=== PATIENT | male | born 1950 | race Caucasian/White ===

== ENCOUNTER → 2021-07-27 | Outpatient (CLI) | payer MEDICARE, OTHER ==
[~2021-07-27] MED LIST: BENTYL 10MG CAP10 MG PO; MEDROL DOSEPAK 24 MG PO; ZITHROMAX250 MG PO; ZOFRAN4 MG PO
== END ==
LOC: CT 09:17
DX: R10.84 Generalized abdominal pain (principal); K59.00 Constipation, unspecified
CPT/HCPCS: 36415; 82565; Q9967

== ENCOUNTER 2021-12-11 16:55 | Observation (INO) | payer MEDICARE, OTHER ==
[~2021-12-11] VITALS: Ht 175.3 cm; Wt 49.0 kg
[2021-12-11 17:31] LABS: HEMOGLOBIN 14.8 gm/dl (14.0-17.5); RED BLOOD COUNT 4.88 M/UL (4.20-5.50); WHITE BLOOD COUNT 7.2 K/UL (4.5-11.0)
[2021-12-11 17:59] LABS: BUN/CREATININE RATIO 20 (0-10)
[2021-12-12 08:49] LABS: HEMOGLOBIN 13.3 gm/dl (14.0-17.5)
[2021-12-12 08:50] LABS: RED BLOOD COUNT 4.38 M/UL (4.20-5.50); WHITE BLOOD COUNT 5.3 K/UL (4.5-11.0)
[2021-12-12 09:15] LABS: BUN/CREATININE RATIO 20 (0-10)
[2021-12-12 15:23] LABS: CANDIDA ALBICANS Not Detected (Negative); CANDIDA KRUSEI Not Detected (Negative); CANDIDA TROPICALIS Not Detected (Negative); ESCHERICHIA COLI Not Detected (Negative); HAEMOPHILUS INFLUENZAE Not Detected (Negative); KLEBSIELLA OXYTOCA Not Detected (Negative); KLEBSIELLA PNEUMONIAE Not Detected (Negative); KPC-CARBAPENEM-RESISTANCE GENE Not Detected (Negative); PROTEUS Not Detected (Negative); PSEUDOMONAS AERUGINOSA Not Detected (Negative); SERRATIA MARCESANS Not Detected (Negative); STAPHYLOCOCCUS AUREUS Not Detected (Negative); STREP AGALACTIAE (GROUP B) Not Detected (Negative); STREP PYOGENES (GROUP A) Not Detected (Negative); STREPTOCOCCUS Not Detected (Negative); vanA/B (VANCOMYCIN RESIST GENE Not Detected (Negative)
[2021-12-12 17:01] LABS: STAPHYLOCOCCUS DETECTED (Negative)
[2021-12-13 05:55] LABS: HEMOGLOBIN 12.7 gm/dl (14.0-17.5); RED BLOOD COUNT 4.24 M/UL (4.20-5.50); WHITE BLOOD COUNT 4.2 K/UL (4.5-11.0)
[2021-12-13 06:19] LABS: BUN/CREATININE RATIO 16 (0-10)
[2021-12-14 02:04] LABS: HEMOGLOBIN 13.1 gm/dl (14.0-17.5); RED BLOOD COUNT 4.43 M/UL (4.20-5.50); WHITE BLOOD COUNT 4.6 K/UL (4.5-11.0)
[2021-12-14 02:29] LABS: BUN/CREATININE RATIO 17 (0-10)
[2021-12-15 02:27] LABS: HEMOGLOBIN 12.8 gm/dl (14.0-17.5); RED BLOOD COUNT 4.3 M/UL (4.20-5.50); WHITE BLOOD COUNT 4.2 K/UL (4.5-11.0)
[2021-12-15 02:51] LABS: BUN/CREATININE RATIO 16 (0-10)
[2021-12-17] MEDS ORDERED: CHRONULAC20 GM/30 M PO (13:52)
[2021-12-17] MEDS ORDERED: THERAGRAN M TAB1 EA PO (13:52)
[2021-12-17] MEDS ORDERED: SENNA LAX8.6 MG PO (13:52)
[2021-12-17] MEDS ORDERED: FLONASE 0.05% N16 GM ×2 (13:52→14:04)
[2021-12-17] MEDS ORDERED: ACETAMINOPHEN325 MG PO (13:52)
[2021-12-17] MEDS ORDERED: MONTELUKAST SOD10 MG PO (13:52)
[2021-12-17] MEDS ORDERED: REMERON 15 MG T15 MG PO (13:52)
--- NOTE | 2021-12-17 16:41 | NUR ---
REPORT CALLED TO [facility]. AWAITING EMS. FAMILY AWARE.
== END 2021-12-17 13:53 ==
LOC: ER1 16:55 → MED SURG 4 12-12 08:27 → CDU 12-12 08:27 → MED SURG 4 12-12 11:21
PROVIDERS: Internal Medicine; Nurse Practitioner; Physician Assistant; ADMIT Internal Medicine
DX: J69.0 Pneumonitis due to inhalation of food and vomit (principal); I10 Essential (primary) hypertension; E11.9 Type 2 diabetes mellitus without complications; J44.9 Chronic obstructive pulmonary disease, unspecified; E86.0 Dehydration; Z87.891 Personal history of nicotine dependence; Z88.0 Allergy status to penicillin; Z20.822 Contact with and (suspected) exposure to COVID-19
CPT/HCPCS: 0240U; 36415; 70450; 71045; 80048; 80053; 80076; 81001; 82140; 82550; 82553; 82607; 82962; 83036; 83605; 83735; 84443; 84484; 85025; 86140; 87040; 87077; 87086; 87150; 87186; 92526; 92610; 93005; 96372; 96374; 96375; 96376; 97110; 97110-GP-CQ; 97116; 97161; 97166; 97530-GP-CQ; 99285; G0378; J0692; J0696; J1650; J2405; Q9967; U0002